=== PATIENT | male | born 1985 | race Caucasian/White ===

== ENCOUNTER 2016-11-12 11:04 | Emergency (ER) | payer MEDICAID ==
[~2016-11-12] VITALS: Ht 165.1 cm; Wt 91.0 kg
[~2016-11-12 11:04] MED LIST: BACTDS PO; CEPH-443 PO; HYDR-906 PO; IBUP-1542 PO
[2016-11-12 11:08] VITALS: Ht 165.1 cm; Wt 91.0 kg
--- NOTE | 2016-11-12 11:50 | RADRPT ---
PROCEDURE: XR Chest AP portable CLINICAL INDICATION: Chest pain TECHNIQUE: An AP portable radiograph of the chest was submitted. COMPARISON: 10/09/2014 FINDINGS: Support Hardware: None Cardiovascular: The cardiovascular silhouette appears unremarkable. Lung Love: The lung love appear clear with no nodule, alveolar infiltrate, or interstitial promi nence evident. Pleural Spaces: No pneumothorax or pleural effusion is identified. Osseous Structures: The osseous structures appear intact. Soft Tissues: The soft tissues appear generous. IMPRESSION: Stable and unremarkable portable chest. Physician Matthew Date Time Electronically viewed and signed by Abisai Coburn Physician on 11/12/2016 11:49 RH/
[2016-11-12 12:08] LABS: BASOPHILS % 0.4 % (0.0-2.0); EOSINOPHILS % 0.6 % (0.0-7.0); HEMATOCRIT 46.7 % (42.0-52.0); HEMOGLOBIN 15.9 g/dl (14.0-18.0); LYMPHOCYTES # 1.4 10^3/ul (0.8-2.9); LYMPHOCYTES % 30.6 % (15.0-51.0); MEAN CORPUSCULAR HEMOGLOBIN 30.2 pg (29.0-33.0); MEAN CORPUSCULAR VOLUME 88.8 fl (82.0-101.0); MEAN PLATELET VOLUME 9.4 fl (7.4-10.4); MONOCYTE # 0.4 10^3/ul (0.3-0.9); MONOCYTES % 7.8 % (0.0-11.0); NEUTROPHILS % 60.2 % (39.0-77.0); PLATELET COUNT 261 10^3/UL (140-415); RED BLOOD COUNT 5.26 10^6/ul (4.70-6.10); RED CELL DISTRIBUTION WIDTH 12.4 % (11.5-14.5); WHITE BLOOD COUNT 4.6 10^3/ul (4.8-10.8)
[2016-11-12 12:25] LABS: BLOOD UREA NITROGEN 15 mg/dl (7-20); CALCIUM 9.4 mg/dl (8.4-10.2); CARBON DIOXIDE 25 mmol/L (21-31); CHLORIDE 102 mmol/L (97-110); CREATININE 0.74 mg/dl (0.61-1.24); GLUCOSE 104 mg/dl (70-220); POTASSIUM 4.1 mmol/L (3.5-5.1)
[2016-11-12 12:36] LABS: ANION GAP 22 (8-16); SODIUM 145 mmol/L (135-144)
[2016-11-12 12:40] LABS: TROPONIN-I < 0.012 ng/ml (0.00-0.12)
[2016-11-12] MEDS ORDERED: IBUP800T25 PO (12:49)
--- NOTE | 2016-11-12 12:49 | ERD ---
ER Documentation Chief Complaint Date/Time DATE: 11/12/16 TIME: 12:47 Chief Complaint NAUSEA , LOSS OF APPETITE , CHEST PAIN , GENERALIZED WEAKNESS X 2 DAYS HPI This is a 31-year-old male presents to the emergency room for evaluation of chest pain, and generalized fatigue over the past 2 days. The patient states that he has been under a lot of stress recently. He states that he is having pain in his left arm and got nervous and came to the ER for evaluation. The patient denies any active pain at this time but did state that when his pain was present it was on the left portion of his chest and describes a achy pain with mild radiation down his left arm. The patient denies having any medical problems but does state that he smokes cigarettes occasionally. He denies any aggravating or relieving factors for his pain and came to the ER for evaluation. ROS All systems reviewed and are negative except as per history of present illness. Medications Home Meds Active Scripts Hydrocodone/Acetaminophen ([place] 5-325 Tablet) 1 Each Tablet, 1 EACH PO Q6, #5 TAB Prov:GISELA JUNIOR PA-C 01/23/16 Sulfamethoxazole-Trimethoprim* (Bactrim* DS) 800-160 Mg Tab, 1 TAB PO BID for 7 Days, TAB Prov:GISELA JUNIOR PA-C 01/23/16 Cephalexin* (Keflex*) 500 Mg Capsule, 500 MG PO QID for 5 Days, CAP Prov:RYLAN MCCAULEY NP 01/19/16 Ibuprofen* (Ibuprofen*) 600 Mg Tablet, 600 MG PO Q6H Y for PAIN, #30 TAB Prov:KALEN VANESSA MD 05/16/15 Allergies Allergies: Coded Allergies: No Known Allergy (Unverified , 10/09/14) PMhx/Soc History of Surgery: Yes (cholecystectomy) Anesthesia Reaction: No Hx Neurological Disorder: No Hx Respiratory Disorders: No Hx Cardiac Disorders: No Hx Psychiatric Problems: No Hx Miscellaneous Medical Probl: Yes (PILONODAL CYST WITH DRAINAGE) Hx Alcohol Use: Yes (OCCASSIONAL) Hx Substance Use: No Hx Tobacco Use: No Smoking Status: Never smoker Physical Exam Vitals Vital Signs Date Time Temp Pulse Resp B/P Pulse Ox O2 Delivery O2 Flow Rate FiO2 11/12/16 11:08 98.1 90 18 137/86 98 Physical Exam INITIAL VITAL SIGNS: Reviewed by me GENERAL: The patient is well developed and appropriate for usual state of health in no apparent distress HEENT: Pupils equal, round, and reactive to light. EOMI. There is no scleral icterus. NECK: C-spine is soft and supple, there is no meningismus. There is no cervical lymphadenopathy. LUNGS: Clear to auscultation bilaterally. There are no rales, wheezes or rhonchi. HEART: Regular rate and rhythm, no murmurs, clicks, rubs or gallops. ABDOMEN: Soft, non-tender, non-distended. There are bowel sounds in all four quadrants. No rebound or guarding. EXTREMITIES: There is no peripheral cyanosis or edema. No focal swelling or erythema. NEUROLOGICAL: The patient moves all four extremities with 5/5 strength. Cranial nerves II - XII are intact. Normal gait. Alert and oriented SKIN: There is no apparent rash or petechiae. HEME/LYMPHATIC: There is no evidence of excessive bruising or lymphedema. PSYCHIATRIC: The patient appears to be mildly anxious Result Diagram: 11/12/16 1152 11/12/16 1152 Results 24 hrs Laboratory Tests Test 11/12/16 11:52 White Blood Count 4.610^3/ul Red Blood Count 5.2610^6/ul Hemoglobin 15.9g/dl Hematocrit 46.7% Mean Corpuscular Volume 88.8fl Mean Corpuscular Hemoglobin 30.2pg Mean Corpuscular Hemoglobin Concent 34.0g/dl Red Cell Distribution Width 12.4% Platelet Count 27425^3/UL Mean Platelet Volume 9.4fl Neutrophils % 60.2% Lymphocytes % 30.6% Monocytes % 7.8% Eosinophils % 0.6% Basophils % 0.4% Nucleated Red Blood Cells % 0.0/100WBC Neutrophils # (Manual) 2.810^3/ul Lymphocytes # 1.410^3/ul Monocytes # 0.410^3/ul Eosinophils # 0.010^3/ul Basophils # 0.010^3/ul Nucleated Red Blood Cells # 0.010^3/ul Sodium Level 145mmol/L Potassium Level 4.1mmol/L Chloride Level 102mmol/L Carbon Dioxide Level 25mmol/L Anion Gap 22 Blood Urea Nitrogen 15mg/dl Creatinine 0.74mg/dl Glucose Level 104mg/dl Calcium Level 9.4mg/dl Troponin I < 0.012ng/ml Procedures/[facility] EKG: Rate/Rhythm: [Normal Sinus Rhythm] QRS, ST, T-waves: [No changes consistent w/ acute ischemia] Impression: [No evidence of ischemia or arrhythmia] Chest X-ray 1V Interpreted by me: Soft Tissue: No acute abnormalities Bones: No acute abnormalities Mediastinum/Cardiac Silhouette/Lungs: [No acute abnormalities] This 31-year-old male presents to the ER for evaluation of chest pain with mild radiation to his left arm. This patient has a heart score of 1. The patient had lab work drawn which does not show any signs of elevated troponin. His electrolytes are within normal limits. His EKG is nonischemic and chest x-ray is clear. When I reevaluated this patient this patient was hemodynamically stable. He was not hypoxic, not tachycardic. My suspicion for PE is low at this time. The patient was advised to follow-up with his primary care physician as an outpatient to possibly set up a stress test. The patient verbalized understanding. The patient will be discharged with a prescription for Motrin for chest pain at this time. Differential diagnoses entertained was broad with potential high acuity. Patient has been evaluated for acute myocardial infarction, unstable angina, aortic dissection, pulmonary embolism, other intrathoracic and cardiac concerns. Ultimately the patient's evaluation is nondiagnostic. Based on the patient's lack of risk factors, as well as the patient's clinical, laboratory, and imaging data, the patient appears to be low risk for these high risk causes of chest pain. Departure Diagnosis: Primary Impression: Chest pain Additional Impression: Stress reaction Condition: Stable NAVI JAY DO Nov 12, 2016 12:45
[2016-11-12] MEDS ORDERED: IBUPROFEN 800 MG TAB PO ONE (13:00)
== END 2016-11-12 12:58 | disposition home or self-care (01) ==
LOC: FTE 11:04
DX: R07.9 Chest pain, unspecified (principal); F43.9 Reaction to severe stress, unspecified
CPT/HCPCS: 36415; 71010; 80048; 84484; 85025; 93005; Z7502; Z7610

== ENCOUNTER 2018-01-08 09:52 | Emergency (ER) | END 2018-01-08 11:52 | disposition home or self-care (01) ==